=== PATIENT | male | born 1970 | race Caucasian/White ===

== ENCOUNTER 2025-03-16 10:15 | Outpatient (CLI) | payer MEDICARE | END 2025-03-16 10:16 | disposition home or self-care (01) | LOC: PET 10:15 | PROVIDERS: ATTEND Radiology Radiation Oncology | DX: C79.31 Secondary malignant neoplasm of brain (principal); C34.90 Malignant neoplasm of unspecified part of unspecified bronchus or lung; G93.6 Cerebral edema; G93.9 Disorder of brain, unspecified; R90.82 White matter disease, unspecified; I67.82 Cerebral ischemia; R91.8 Other nonspecific abnormal finding of lung field | CPT/HCPCS: 70553; 76376; 78816; A9552 ==